=== PATIENT | female | born 1950 | race Caucasian/White ===

== ENCOUNTER 2021-03-21 12:29 | Emergency (ER) | payer OTHER ==
[~2021-03-21] VITALS: Ht 162.6 cm; Wt 90.3 kg
[2021-03-21 12:30] VITALS: BP_SYST 243
[2021-03-21] MEDS ORDERED: LABETALOL 100 MG/ 20ML VIAL IVP ONE (12:45)
[2021-03-21 13:15] LABS: BASOPHILS % (AUTO) 0.3 % (0.0-2.0); EOSINOPHILS # (AUTO) 0.3 K/uL (0.0-0.4); HEMATOCRIT 40.2 % (36-48); HEMOGLOBIN 13.8 g/dL (12.0-16.0); LYMPHOCYTES # (AUTO) 1.6 K/uL (1.0-5.5); LYMPHOCYTES % (AUTO) 18.2 % (20.5-51.5); MEAN CORPUSCULAR HEMOGLOBIN 31 pg (27-31); MEAN CORPUSCULAR HGB CONC 34 % (32-36); MEAN CORPUSCULAR VOLUME 91 fL (79.0-98.0); MONOCYTES # (AUTO) 0.6 K/uL (0.0-1.0); NEUTROPHILS # (AUTO) 6.2 K/uL (1.8-7.7); NEUTROPHILS % (AUTO) 70.5 % (40.0-70.0); PLATELET COUNT (AUTO) 286 K/uL (130-430); RED BLOOD CELL COUNT(AUTO) 4.44 MIL/uL (4.2-6.2); RED CELL DISTRIBUTION WIDTH 13.4 % (9.0-15.0); WHITE BLOOD COUNT (AUTO) 8.8 K/uL (4.8-10.8)
[2021-03-21 13:28] LABS: CALCIUM 9.4 mg/dL (8.4-11.0); CREATININE 0.98 mg/dL (0.55-1.30)
[2021-03-21 13:37] LABS: ALBUMIN 3.7 g/dL (3.4-4.8); TOTAL BILIRUBIN 0.3 mg/dL (0.0-1.0)
[2021-03-21 14:20] VITALS: BP_SYST 144
== END 2021-03-21 14:22 | disposition home or self-care (01) ==
LOC: SED 12:29
DX: I10 Essential (primary) hypertension (principal)
CPT/HCPCS: 36415; 71045; 80053; 84484; 85025; 93005; 96374; 99285; J3490

== ENCOUNTER 2021-09-19 19:26 | Inpatient (IN) | payer OTHER ==
[~2021-09-19] VITALS: Ht 162.6 cm; Wt 89.4 kg
[2021-09-19 19:45] VITALS: BP_SYST 125
[2021-09-19 20:41] LABS: WHITE BLOOD COUNT (AUTO) 12.5 K/uL (4.8-10.8)
[2021-09-19 20:58] LABS: BASOPHILS % (AUTO) 0.2 % (0.0-2.0); EOSINOPHILS % (AUTO) 0.3 % (0.0-4.0); HEMATOCRIT 38.5 % (36-48); HEMOGLOBIN 13.8 g/dL (12.0-16.0); LYMPHOCYTES # (AUTO) 2.4 K/uL (1.0-5.5); LYMPHOCYTES % (AUTO) 18.8 % (20.5-51.5); MEAN CORPUSCULAR HEMOGLOBIN 32 pg (27-31); MEAN CORPUSCULAR HGB CONC 36 % (32-36); MEAN CORPUSCULAR VOLUME 88 fL (79.0-98.0); MONOCYTES # (AUTO) 1.6 K/uL (0.0-1.0); MONOCYTES % (AUTO) 12.9 % (1.7-9.3); NEUTROPHILS # (AUTO) 8.5 K/uL (1.8-7.7); NEUTROPHILS % (AUTO) 67.8 % (40.0-70.0); PLATELET COUNT (AUTO) 416 K/uL (130-430); RED BLOOD CELL COUNT(AUTO) 4.36 MIL/uL (4.2-6.2)
[2021-09-19] MEDS ORDERED: NACL 0.9% 1,000 ML IV ONE ×2 (21:00→22:30)
[2021-09-19 21:51] LABS: CALCIUM 9.3 mg/dL (8.4-11.0); CREATININE 1.22 mg/dL (0.55-1.30)
[2021-09-19 21:58] LABS: ALBUMIN 3.8 g/dL (3.4-4.8); TOTAL BILIRUBIN 0.5 mg/dL (0.0-1.0)
[2021-09-19 22:09] LABS: POTASSIUM 2.6 mmol/L (3.5-5.1)
[2021-09-19] MEDS ORDERED: SODIUM CHLORIDE 3% *HI-ALERT* 500 ML IV ONE ×2 (22:30→23:33)
[2021-09-19] MEDS ORDERED: KCL 10 mEq in 50 mL (PREMIX) 50 ML IV ONE ×3 (22:30)
[2021-09-19] MEDS ORDERED: CARB200T PO (23:04)
[2021-09-19] MEDS ORDERED: LOSA50TA3 PO (23:05)
[2021-09-19] MEDS ORDERED: SERT-131 PO (23:05)
[2021-09-19] MEDS ORDERED: CLON0.1T PO (23:06)
[2021-09-19] MEDS ORDERED: CHLO50TA PO (23:07)
[2021-09-19] MEDS ORDERED: TRAZ-250 PO (23:08)
[2021-09-19] MEDS ORDERED: PRAV20TA59 PO (23:09)
[2021-09-19] MEDS ORDERED: NOR10 PO (23:09)
[2021-09-19] MEDS ORDERED: LAMO200T2 PO (23:10)
[2021-09-19] MEDS ORDERED: ONDA-8 TL (23:13)
[2021-09-20 01:02] LABS: BILIRUBIN,URINE NEGATIVE (NEGATIVE); CLARITY/URINE CLEAR (CLEAR); COLOR,URINE YELLOW (YELLOW); GLUCOSE,URINE NEGATIVE (NEGATIVE); KETONES,URINE NEGATIVE (NEGATIVE); LEUKOCYTE ESTERASE ,URINE TRACE (NEGATIVE); NITRITE, URINE NEGATIVE (NEGATIVE); PROTEIN URINE NEGATIVE (NEGATIVE); UROBILINOGEN,URINE 0.2 (0.2-1.0)
[2021-09-20 01:06] LABS: BLOOD, URINE TRACE (NEGATIVE)
[2021-09-20 01:23] LABS: RBC,URINE 50-80 /HPF (0-3)
[2021-09-20 01:24] LABS: BACTERIA,URINE MODERATE /HPF (None Seen); MUCUS,URINE 3+ /LPF (None Seen)
[2021-09-20] MEDS ORDERED: XALEYE OP (01:26)
[2021-09-20] MEDS ORDERED: LATA7.5D OP (01:27)
[2021-09-20] MEDS ORDERED: cefTRIAXone 1 GM IVPB PREMIX 50 ML IV ONE (01:45)
[2021-09-20] MEDS ORDERED: POTASSIUM CHLORIDE 20 MEQ/PKT PACKET PO ONE ×2 (02:15)
[2021-09-20 03:30] VITALS: BP_SYST 151
[2021-09-20] MEDS: D5NS 1,000 ML IV SCH ×3 (05:46→23:00)
[2021-09-20 08:00] VITALS: BP_SYST 141
[2021-09-20] MEDS ORDERED: ONDANSETRON HCL 4 MG/2 ML VIAL IVP PRN (09:30)
[2021-09-20] MEDS ORDERED: ACETAMINOPHEN 325 MG TABLET PO PRN (09:30)
[2021-09-20] MEDS ORDERED: ONDANSETRON 4 MG ODT TAB TL PRN (09:30)
[2021-09-20] MEDS ORDERED: HYDROcodone/ACETAMIN 10-325 MG TAB PO PRN (09:30)
[2021-09-20] MEDS ORDERED: HYDROcodone/ACETAMIN 5-325 MG TAB (NORCO/ VICODIN) PO PRN (09:30)
[2021-09-20] MEDS ORDERED: NALOXONE HCL 0.4 MG/ML AMP (NARCAN) IVP PRN ×2 (09:30)
[2021-09-20 10:02] LABS: BASOPHILS % (AUTO) 0.3 % (0.0-2.0); EOSINOPHILS # (AUTO) 0.1 K/uL (0.0-0.4); EOSINOPHILS % (AUTO) 0.7 % (0.0-4.0); HEMATOCRIT 33.1 % (36-48); HEMOGLOBIN 12.2 g/dL (12.0-16.0); LYMPHOCYTES # (AUTO) 1.5 K/uL (1.0-5.5); LYMPHOCYTES % (AUTO) 14.9 % (20.5-51.5); MEAN CORPUSCULAR HEMOGLOBIN 32 pg (27-31); MEAN CORPUSCULAR HGB CONC 37 % (32-36); MEAN CORPUSCULAR VOLUME 88 fL (79.0-98.0); MONOCYTES # (AUTO) 1.4 K/uL (0.0-1.0); MONOCYTES % (AUTO) 14.1 % (1.7-9.3); NEUTROPHILS # (AUTO) 7.1 K/uL (1.8-7.7); PLATELET COUNT (AUTO) 345 K/uL (130-430); RED BLOOD CELL COUNT(AUTO) 3.78 MIL/uL (4.2-6.2); RED CELL DISTRIBUTION WIDTH 12.7 % (9.0-15.0); WHITE BLOOD COUNT (AUTO) 10.1 K/uL (4.8-10.8)
[2021-09-20] MEDS ORDERED: amLODIPine BESYLATE 10 MG TABLET PO ONE (10:10)
[2021-09-20] MEDS ORDERED: SERTRALINE HCL 50 MG TABLET PO ONE (10:10)
[2021-09-20 10:15] LABS: CALCIUM 8.7 mg/dL (8.4-11.0); CREATININE 1.01 mg/dL (0.55-1.30); TOTAL BILIRUBIN 0.3 mg/dL (0.0-1.0)
[2021-09-20 11:26] VITALS: BP_SYST 142
[2021-09-20 16:26] VITALS: BP_SYST 144
[2021-09-20 20:44] VITALS: BP_SYST 142
[2021-09-20] MEDS: traZODone HCL 50 MG TABLET (DESYREL) PO PRN (20:56)
[2021-09-20] MEDS: LOSARTAN POTASSIUM 50 MG TABLET (COZAAR) PO SCH (20:57)
[2021-09-20] MEDS: ATORVASTATIN 10 MG TABLET PO SCH (20:57)
[2021-09-20] MEDS: LamoTRIgine 100 MG TABLET PO SCH (20:57)
[2021-09-21 01:13] VITALS: BP_SYST 156; BP_SYST 158
[2021-09-21 07:01] LABS: BASOPHILS % (AUTO) 0.3 % (0.0-2.0); EOSINOPHILS # (AUTO) 0.3 K/uL (0.0-0.4); EOSINOPHILS % (AUTO) 2.5 % (0.0-4.0); HEMATOCRIT 31.1 % (36-48); HEMOGLOBIN 11.3 g/dL (12.0-16.0); LYMPHOCYTES % (AUTO) 19.9 % (20.5-51.5); MEAN CORPUSCULAR HEMOGLOBIN 32 pg (27-31); MEAN CORPUSCULAR HGB CONC 36 % (32-36); MEAN CORPUSCULAR VOLUME 89 fL (79.0-98.0); MONOCYTES # (AUTO) 1.4 K/uL (0.0-1.0); MONOCYTES % (AUTO) 13.5 % (1.7-9.3); NEUTROPHILS # (AUTO) 6.5 K/uL (1.8-7.7); NEUTROPHILS % (AUTO) 63.8 % (40.0-70.0); PLATELET COUNT (AUTO) 365 K/uL (130-430); RED BLOOD CELL COUNT(AUTO) 3.49 MIL/uL (4.2-6.2); WHITE BLOOD COUNT (AUTO) 10.2 K/uL (4.8-10.8)
[2021-09-21 07:30] LABS: ALBUMIN 2.9 g/dL (3.4-4.8); CALCIUM 8.3 mg/dL (8.4-11.0); CREATININE 1.02 mg/dL (0.55-1.30); PHOSPHORUS 2.8 mg/dL (2.7-4.5); TOTAL BILIRUBIN 0.2 mg/dL (0.0-1.0)
[2021-09-21] MEDS: D5NS 1,000 ML IV SCH ×2 (08:00→18:45)
[2021-09-21 08:35] LABS: POTASSIUM 2.8 mmol/L (3.5-5.1)
[2021-09-21 10:02] VITALS: BP_SYST 158
[2021-09-21] MEDS: cefTRIAXone 1 GM IVPB PREMIX 50 ML IV SCH (10:13)
[2021-09-21] MEDS: amLODIPine BESYLATE 10 MG TABLET PO SCH (10:14)
[2021-09-21] MEDS: SERTRALINE HCL 50 MG TABLET PO SCH (10:14)
[2021-09-21] MEDS: LamoTRIgine 100 MG TABLET PO SCH ×2 (10:15→20:57)
[2021-09-21] MEDS: KCL 40 mEq in D5W 1000 mL 1,000 ML IV SCH ×2 (10:17→20:00)
[2021-09-21 12:31] VITALS: BP_SYST 154
[2021-09-21 16:29] VITALS: BP_SYST 155
[2021-09-21 20:25] VITALS: BP_SYST 160
[2021-09-21] MEDS: traZODone HCL 50 MG TABLET (DESYREL) PO PRN (20:57)
[2021-09-21] MEDS: ATORVASTATIN 10 MG TABLET PO SCH (20:58)
[2021-09-21] MEDS: LATANOPROST 2.5 ML DROPS (XALATAN) OP SCH (20:58)
[2021-09-21] MEDS: LOSARTAN POTASSIUM 50 MG TABLET (COZAAR) PO SCH (20:58)
[2021-09-22 00:05] VITALS: BP_SYST 135
[2021-09-22] MEDS: KCL 40 mEq in D5W 1000 mL 1,000 ML IV SCH (04:49)
[2021-09-22 06:45] LABS: BASOPHILS # (AUTO) 0.1 K/uL (0.0-0.2); BASOPHILS % (AUTO) 0.5 % (0.0-2.0); EOSINOPHILS # (AUTO) 0.7 K/uL (0.0-0.4); EOSINOPHILS % (AUTO) 6.3 % (0.0-4.0); HEMATOCRIT 31.3 % (36-48); HEMOGLOBIN 11.6 g/dL (12.0-16.0); LYMPHOCYTES # (AUTO) 2.6 K/uL (1.0-5.5); LYMPHOCYTES % (AUTO) 22.7 % (20.5-51.5); MEAN CORPUSCULAR HEMOGLOBIN 33 pg (27-31); MEAN CORPUSCULAR HGB CONC 37 % (32-36); MEAN CORPUSCULAR VOLUME 90 fL (79.0-98.0); MONOCYTES # (AUTO) 1.4 K/uL (0.0-1.0); MONOCYTES % (AUTO) 12.5 % (1.7-9.3); NEUTROPHILS # (AUTO) 6.6 K/uL (1.8-7.7); PLATELET COUNT (AUTO) 348 K/uL (130-430); RED BLOOD CELL COUNT(AUTO) 3.49 MIL/uL (4.2-6.2); RED CELL DISTRIBUTION WIDTH 12.9 % (9.0-15.0); WHITE BLOOD COUNT (AUTO) 11.3 K/uL (4.8-10.8)
[2021-09-22 07:05] LABS: CALCIUM 8.7 mg/dL (8.4-11.0); CREATININE 1.08 mg/dL (0.55-1.30); POTASSIUM 3.7 mmol/L (3.5-5.1)
[2021-09-22 08:00] VITALS: BP_SYST 123
[2021-09-22] MEDS: cefTRIAXone 1 GM IVPB PREMIX 50 ML IV SCH (10:27)
[2021-09-22] MEDS: SERTRALINE HCL 50 MG TABLET PO SCH (10:27)
[2021-09-22] MEDS: LamoTRIgine 100 MG TABLET PO SCH ×2 (10:28→21:31)
[2021-09-22] MEDS: cloNIDine HCL 0.1 MG TABLET PO PRN (10:28)
[2021-09-22] MEDS: amLODIPine BESYLATE 10 MG TABLET PO SCH (10:29)
[2021-09-22] MEDS: D5NS 1,000 ML IV SCH ×2 (10:32→21:29)
[2021-09-22 17:38] VITALS: BP_SYST 123
[2021-09-22 21:00] VITALS: BP_SYST 154
[2021-09-22] MEDS: LOSARTAN POTASSIUM 50 MG TABLET (COZAAR) PO SCH (21:30)
[2021-09-22] MEDS: traZODone HCL 50 MG TABLET (DESYREL) PO PRN (21:31)
[2021-09-22] MEDS: ATORVASTATIN 10 MG TABLET PO SCH (21:31)
[2021-09-22] MEDS: LATANOPROST 2.5 ML DROPS (XALATAN) OP SCH (21:32)
[2021-09-23 00:59] VITALS: BP_SYST 141
[2021-09-23] MEDS: D5NS 1,000 ML IV SCH (04:56)
[2021-09-23 06:57] LABS: BASOPHILS % (AUTO) 0.5 % (0.0-2.0); EOSINOPHILS # (AUTO) 0.8 K/uL (0.0-0.4); EOSINOPHILS % (AUTO) 9.5 % (0.0-4.0); HEMATOCRIT 30.9 % (36-48); HEMOGLOBIN 11.3 g/dL (12.0-16.0); LYMPHOCYTES % (AUTO) 22.3 % (20.5-51.5); MEAN CORPUSCULAR HEMOGLOBIN 33 pg (27-31); MEAN CORPUSCULAR HGB CONC 37 % (32-36); MEAN CORPUSCULAR VOLUME 90 fL (79.0-98.0); NEUTROPHILS % (AUTO) 56.7 % (40.0-70.0); PLATELET COUNT (AUTO) 318 K/uL (130-430); RED BLOOD CELL COUNT(AUTO) 3.44 MIL/uL (4.2-6.2); RED CELL DISTRIBUTION WIDTH 12.7 % (9.0-15.0); WHITE BLOOD COUNT (AUTO) 8.8 K/uL (4.8-10.8)
[2021-09-23 07:38] LABS: ALBUMIN 2.8 g/dL (3.4-4.8); CALCIUM 8.5 mg/dL (8.4-11.0); CREATININE 1.04 mg/dL (0.55-1.30); PHOSPHORUS 3.1 mg/dL (2.7-4.5); POTASSIUM 3.3 mmol/L (3.5-5.1); TOTAL BILIRUBIN 0.2 mg/dL (0.0-1.0)
[2021-09-23 09:12] VITALS: BP_SYST 173
[2021-09-23] MEDS: SERTRALINE HCL 50 MG TABLET PO SCH (09:52)
[2021-09-23] MEDS: amLODIPine BESYLATE 10 MG TABLET PO SCH (09:52)
[2021-09-23] MEDS: LamoTRIgine 100 MG TABLET PO SCH ×2 (09:53→20:26)
[2021-09-23] MEDS: cloNIDine HCL 0.1 MG TABLET PO PRN (09:53)
[2021-09-23] MEDS: cefTRIAXone 1 GM IVPB PREMIX 50 ML IV SCH (09:54)
[2021-09-23] MEDS: FUROSEMIDE 20 MG TABLET PO SCH ×2 (09:54→20:27)
[2021-09-23 16:12] VITALS: BP_SYST 153
[2021-09-23] MEDS ORDERED: POTASSIUM CHLORIDE 20 MEQ TAB.PRT.SR PO ONE ×2 (17:00→21:00)
[2021-09-23] MEDS: LOSARTAN POTASSIUM 50 MG TABLET (COZAAR) PO SCH (20:27)
[2021-09-23] MEDS: ATORVASTATIN 10 MG TABLET PO SCH (20:27)
[2021-09-23] MEDS: LATANOPROST 2.5 ML DROPS (XALATAN) OP SCH (20:28)
[2021-09-23 20:44] VITALS: BP_SYST 125
[2021-09-24 00:53] VITALS: BP_SYST 148
[2021-09-24 06:52] LABS: CALCIUM 8.8 mg/dL (8.4-11.0); CREATININE 0.9 mg/dL (0.55-1.30); POTASSIUM 3.7 mmol/L (3.5-5.1)
[2021-09-24] MEDS: amLODIPine BESYLATE 10 MG TABLET PO SCH (08:40)
[2021-09-24] MEDS: LamoTRIgine 100 MG TABLET PO SCH (08:40)
[2021-09-24] MEDS: SERTRALINE HCL 50 MG TABLET PO SCH (08:40)
[2021-09-24] MEDS: FUROSEMIDE 20 MG TABLET PO SCH (08:41)
[2021-09-24] MEDS: cefTRIAXone 1 GM IVPB PREMIX 50 ML IV SCH (09:44)
[2021-09-24] MEDS ORDERED: CAT1PAT TD (09:48)
[2021-09-24] MEDS: cloNIDine HCL 0.1 MG TABLET PO PRN (10:37)
[2021-09-24 10:50] VITALS: BP_SYST 167
[2021-09-24 12:00] VITALS: BP_SYST 165
[2021-09-24] MEDS ORDERED: FURO-150 PO (12:24)
== END 2021-09-24 12:30 | disposition home health service (06) | DRG 871 ==
LOC: SED 19:26 → SMU 09-20 02:31
PROVIDERS: ADMIT Preventive Medicine Preventive Medicine/Occupational Environmental Medicine; ATTEND Specialist
DX: A41.9 Sepsis, unspecified organism (principal); G93.41 Metabolic encephalopathy; N39.0 Urinary tract infection, site not specified; E87.1 Hypo-osmolality and hyponatremia; I10 Essential (primary) hypertension; K52.9 Noninfective gastroenteritis and colitis, unspecified; E88.09 Other disorders of plasma-protein metabolism, not elsewhere classified; E78.5 Hyperlipidemia, unspecified; E87.6 Hypokalemia; G50.0 Trigeminal neuralgia; G47.00 Insomnia, unspecified; F41.9 Anxiety disorder, unspecified; R73.9 Hyperglycemia, unspecified; B96.1 Klebsiella pneumoniae [K. pneumoniae] as the cause of diseases classified elsewhere; D64.9 Anemia, unspecified; Z20.822 Contact with and (suspected) exposure to COVID-19; K21.9 Gastro-esophageal reflux disease without esophagitis; Z88.8 Allergy status to other drugs, medicaments and biological substances; Z79.899 Other long term (current) drug therapy; Z88.1 Allergy status to other antibiotic agents; Z90.710 Acquired absence of both cervix and uterus; Z86.16 Personal history of COVID-19; T46.5X5A Adverse effect of other antihypertensive drugs, initial encounter
CPT/HCPCS: 36415; 71045; 80048; 80053; 81000; 82570; 83690; 83735; 83930; 83935; 84100; 84302; 84443; 84484; 85025; 87040; 87086; 93005; 96360; 96361; 97116-GP; 97163-GP; 99285; J0696; J3480; J3490; J7030

== ENCOUNTER 2023-01-15 19:36 | Emergency (ER) | payer OTHER ==
[~2023-01-15] VITALS: Ht 162.6 cm; Wt 85.3 kg
[~2023-01-15 19:36] MED LIST: CARB200T PO; CAT1PAT TD; CLON0.1T PO; FURO-150 PO; LAMO200T2 PO; LATA7.5D OP; LOSA-413 PO; NOR10 PO; ONDA-8 TL; PRAV20TA59 PO; SERT-131 PO; TRAZ-250 PO
[2023-01-15 19:51] VITALS: BP_SYST 232; PULSE 85; RESP 20; TEMP 99.3; O2SAT 95
[2023-01-15] MEDS ORDERED: hydrALAZINE HCL 20 MG/ML VIAL IVP ONE (20:15)
[2023-01-15 20:25] LABS: ANION GAP 11 (5-15); CALCIUM 9.8 mg/dL (8.4-11.0); CARBON DIOXIDE 27 mmol/L (23-29); CHLORIDE 96 mmol/L (98-107); CREATININE 0.91 mg/dL (0.55-1.30); GLUCOSE 111 mg/dL (74-106); SODIUM SERUM 134 mmol/L (136-145); UREA NITROGEN, BLOOD 12 mg/dL (8-21)
[2023-01-15 20:26] LABS: BASOPHILS % (AUTO) 0.2 % (0.0-2.0); EOSINOPHILS # (AUTO) 0.5 K/uL (0.0-0.4); HEMATOCRIT 43.3 % (36-48); HEMOGLOBIN 14.3 g/dL (12.0-16.0); LYMPHOCYTES # (AUTO) 2.5 K/uL (1.0-5.5); LYMPHOCYTES % (AUTO) 23.3 % (20.5-51.5); MEAN CORPUSCULAR HEMOGLOBIN 31 pg (27-31); MEAN CORPUSCULAR HGB CONC 33 % (32-36); MEAN CORPUSCULAR VOLUME 93 fL (79.0-98.0); MONOCYTES # (AUTO) 0.9 K/uL (0.0-1.0); MONOCYTES % (AUTO) 8.7 % (1.7-9.3); NEUTROPHILS # (AUTO) 6.7 K/uL (1.8-7.7); NEUTROPHILS % (AUTO) 62.8 % (40.0-70.0); PLATELET COUNT (AUTO) 321 K/uL (130-430); RED BLOOD CELL COUNT(AUTO) 4.65 MIL/uL (4.2-6.2); RED CELL DISTRIBUTION WIDTH 13.5 % (9.0-15.0); WHITE BLOOD COUNT (AUTO) 10.6 K/uL (4.8-10.8)
[2023-01-15] MEDS ORDERED: ACETAMINOPHEN 500 MG TABLET PO ONE (21:15)
[2023-01-15 21:25] VITALS: BP_SYST 198; PULSE 88; RESP 21; TEMP 97.7; O2SAT 95
== END 2023-01-15 21:25 | disposition home or self-care (01) ==
LOC: SED 19:36
DX: I16.0 Hypertensive urgency (principal); Z79.899 Other long term (current) drug therapy
CPT/HCPCS: 99284; 96374; 80048; 85025; 84484; 36415; 93005; J0360

== ENCOUNTER 2023-11-10 14:14 | Emergency (ER) | payer OTHER ==
[~2023-11-10] VITALS: Ht 162.6 cm; Wt 83.5 kg
[2023-11-10 14:26] VITALS: BP_SYST 163; PULSE 81; RESP 16; TEMP 97.3; O2SAT 95
[2023-11-10 16:04] LABS: PROTHROMBIN TIME 10.3 SECS (9.5-12.5)
[2023-11-10 16:07] LABS: ALANINE AMINOTRANSFERASE 17 U/L (12-78); ALBUMIN 3.6 g/dL (3.4-4.8); ANION GAP 12 (5-15); ASPARTATE AMINOTRANSFERASE 17 U/L (10-37); BILIRUBIN,DIRECT 0.1 mg/dL (0.0-0.3); CALCIUM 9.2 mg/dL (8.4-11.0); CARBON DIOXIDE 28 mmol/L (23-29); CHLORIDE 96 mmol/L (98-107); CREATINE KINASE, TOTAL 32 U/L (26-192); CREATININE 1.12 mg/dL (0.55-1.30); GLUCOSE 128 mg/dL (74-106); POTASSIUM 3.8 mmol/L (3.5-5.1); SODIUM SERUM 136 mmol/L (136-145); TOTAL BILIRUBIN 0.4 mg/dL (0.0-1.0); TOTAL PROTEIN, SERUM 7.2 g/dL (6.4-8.3); UREA NITROGEN, BLOOD 13 mg/dL (8-21)
[2023-11-10 16:13] LABS: BASOPHILS # (AUTO) 0.1 K/uL (0.0-0.2); BASOPHILS % (AUTO) 0.7 % (0.0-2.0); EOSINOPHILS # (AUTO) 0.1 K/uL (0.0-0.4); EOSINOPHILS % (AUTO) 0.5 % (0.0-4.0); HEMATOCRIT 40.3 % (36-48); HEMOGLOBIN 14.1 g/dL (12.0-16.0); LYMPHOCYTES # (AUTO) 1.7 K/uL (1.0-5.5); LYMPHOCYTES % (AUTO) 15.4 % (20.5-51.5); MEAN CORPUSCULAR HEMOGLOBIN 33 pg (27-31); MEAN CORPUSCULAR HGB CONC 35 % (32-36); MEAN CORPUSCULAR VOLUME 93 fL (79.0-98.0); MONOCYTES # (AUTO) 0.6 K/uL (0.0-1.0); MONOCYTES % (AUTO) 5.1 % (1.7-9.3); NEUTROPHILS # (AUTO) 8.6 K/uL (1.8-7.7); NEUTROPHILS % (AUTO) 78.3 % (40.0-70.0); PLATELET COUNT (AUTO) 330 K/uL (130-430); RED BLOOD CELL COUNT(AUTO) 4.34 MIL/uL (4.2-6.2)
[2023-11-10] MEDS ORDERED: CLON0.2T PO (17:56)
[2023-11-10] MEDS: cloNIDine HCL 0.1 MG TABLET PO ONE (17:59)
[2023-11-10] MEDS ORDERED: LABETALOL 100 MG/ 20ML VIAL ONE (19:51)
[2023-11-10] MEDS: LABETALOL HCL 250 MG in NS 200 ML IV ONE (19:56)
[2023-11-10 21:37] VITALS: BP_SYST 150; PULSE 76; RESP 18; TEMP 97.3; O2SAT 94
== END 2023-11-10 21:36 | disposition home or self-care (01) ==
LOC: SED 14:14
DX: I16.0 Hypertensive urgency (principal); R07.89 Other chest pain; I10 Essential (primary) hypertension; Z88.8 Allergy status to other drugs, medicaments and biological substances; Z79.899 Other long term (current) drug therapy; Z79.2 Long term (current) use of antibiotics
CPT/HCPCS: 99285; 96365; 71045; 96366; 80076; 80048; 82550; 83880; 85025; 85610; 85730; 84484; 36415; 93005; J7050; J3490